=== PATIENT | male | born 1990 | race Caucasian/White ===

== ENCOUNTER 2017-06-28 07:53 | Emergency (ER) | payer OTHER ==
[~2017-06-28] VITALS: Ht 175.3 cm; Wt 88.5 kg
== END 2017-06-28 10:19 | disposition home or self-care (01) ==
LOC: ER 07:53
DX: K29.70 Gastritis, unspecified, without bleeding (principal)

== ENCOUNTER 2017-11-12 07:01 | Emergency (ER) | payer OTHER ==
[~2017-11-12] VITALS: Ht 175.3 cm; Wt 83.5 kg
== END 2017-11-12 12:04 | disposition home or self-care (01) ==
LOC: ER 07:01
DX: S63.591A Other specified sprain of right wrist, initial encounter (principal); W23.0XXA Caught, crushed, jammed, or pinched between moving objects, initial encounter; Y93.89 Activity, other specified; Y92.69 Other specified industrial and construction area as the place of occurrence of the external cause; Y99.8 Other external cause status